=== PATIENT | male | born 1940 | race Caucasian/White ===

== ENCOUNTER → 2018-09-27 | Outpatient (CLI) | payer MEDICARE, OTHER ==
[~2018-09-27] MED LIST: COLACE100 MG; COMPLETE MULTI1 EAC3 PO; ECHINACEA 5001 EACH PO; FISH OIL 1,0001 EAC5 PO; GLUCOSAMINE-MS1 EAC3 PO; HYDROCODON-ACE1 EAC7; ODORLESS GARLI500 MG PO; VITAMIN E400 UNIT PO
--- NOTE | 2018-09-27 15:24 | 2DMMODE ---
[place] [address] 2 D/M-MODE ECHOCARDIOGRAM Name: CUBA LONG Room: [facility]#: [id number] Admission: 09/27/18 Attend Phys: Miguel A Vang, Discharge: Date of : 38 Date of Service: 09/27/18 1523 Report #: [id number] THIS REPORT FOR: //name// APPROVED REPORT Study performed: 09/27/2018 13:54:49 EXAM: Comprehensive 2D, Doppler, and color-flow Echocardiogram Patient Location: Out-Patient BSA: 1.98 HR: 102 bpm BP: 142/82 mmHg Other Information Study Quality: Good Indications Hypertension/HDD 2D Dimensions IVSd: 12.59 (7-11mm) LVOT Diam: 20.37 (18-24mm) LVDd: 42.18 mm PWd: 10.30 (7-11mm) Ascending Ao: 28.64 (22-36mm) LVDs: 22.33 (25-40mm) Aortic Root: 27.60 mm Volumes Left Atrial Volume (Systole) LA ESV Index: 16.10 mL/m2 Aortic Valve AoV Peak Aleksandar.: 0.95 m/s AO Peak Gr.: 3.59 mmHg LVOT Max P.20 mmHg AO Mean Gr.: 1.75 mmHg LVOT Mean P.91 mmHg LVOT Max V: 1.02 m/s AO V2 VTI: 13.63 cm LVOT Mean V: 0.63 m/s MARY JO (VTI): 3.51 cm2 LVOT V1 VTI: 14.66 cm Mitral Valve E/A Ratio: 0.53 MV Decel. Time: 192.69 ms MV E Max Aleksandar.: 0.42 m/s MV PHT: 55.88 ms MVA (PHT): 3.94 [place]2 [place] [address] 2 D/M-MODE ECHOCARDIOGRAM Name: CUBA LONG Room: [facility]#: [id number] Admission: 09/27/18 Attend Phys: Miguel A Vang, Discharge: Date of : 38 Date of Service: 09/27/18 1523 Report #: [id number] TDI E/Lateral E': 4.20 E/Medial E': 8.40 Medial E' Aleksandar.: 0.05 m/s Lateral E' Aleksandar.: 0.10 m/s Pulmonary Valve PV Peak Aleksandar.: 1.46 m/s PV Peak Gr.: 8.57 mmHg Tricuspid Valve RAP Estimate: 5.00 mmHg TR Peak Gr.: 26.18 mmHg RVSP: 31.18 mmHg PA Pressure: 31.18 mmHg Left Ventricle The left ventricle is normal size. There is normal LV segmental wall motion. There is normal left ventricular wall thickness. Left ventricular systolic function is normal. The left ventricular ejection fraction is within the normal range. LVEF is 60-65%. Grade I - abnormal relaxation pattern. Right Ventricle The right ventricle is normal size. The right ventricular systolic function is normal. Atria The left atrium size is normal. The right atrium size is normal. Aortic Valve Aortic valve is mildly calcified. No aortic regurgitation is present. There is no aortic valvular stenosis. Mitral Valve The mitral valve is normal in structure. Trace mitral regurgitation. No evidence of mitral valve stenosis. Tricuspid Valve The tricuspid valve is normal in structure. There is no tricuspid valve regurgitation noted. Pulmonic Valve The pulmonary valve is normal in structure. There is no pulmonic [place] [address] 2 D/M-MODE ECHOCARDIOGRAM Name: CUBA LONG Room: [facility]#: [id number] Admission: 09/27/18 Attend Phys: Miguel A Vang, Discharge: Date of : 38 Date of Service: 09/27/18 1523 Report #: [id number] The aortic root is normal in size. IVC is normal in size and collapses >50% with inspiration. Pericardium There is no pericardial effusion. <Conclusion> The left ventricle is normal size. There is normal left ventricular wall thickness. Left ventricular systolic function is normal. The left ventricular ejection fraction is within the normal range. LVEF is 60-65%. Grade I - abnormal relaxation pattern. The right ventricle is normal size. The left atrium size is normal. Aortic valve is mildly calcified. No aortic regurgitation is present. There is no aortic valvular stenosis. The mitral valve is normal in structure. The tricuspid valve is normal in structure. IVC is normal in size and collapses >50% with inspiration. There is no pericardial effusion. There is normal LV segmental wall motion. <ELECTRONICALLY SIGNED> By: Marco Perez MD, FACC 09/27/18 1523 1523 1523 Marco Perez MD, FACC /INF
== END ==
LOC: M.CRD 09:00
DX: I35.8 Other nonrheumatic aortic valve disorders (principal); I10 Essential (primary) hypertension

== ENCOUNTER 2018-11-18 18:50 | Emergency (ER) | payer MEDICARE, OTHER ==
[~2018-11-18] VITALS: Ht 170.2 cm; Wt 86.2 kg
[2018-11-18] MEDS ORDERED: PRILOSEC 20 MG20 MG PO ×2 (19:11→19:12)
[2018-11-18] MEDS ORDERED: TENORMIN25 MG PO (19:12)
[2018-11-18] MEDS ORDERED: NIFEDIPINE ER30 MG PO (19:12)
[2018-11-18 19:25] LABS: URINE BLOOD 3+ (Negative); URINE CLARITY CLEAR; URINE COLOR BROWN; URINE GLUCOSE-RANDOM NEGATIVE (Negative); URINE KETONES NEGATIVE (Negative); URINE PROTEIN 1+ (Negative); URINE SPECIFIC GRAVITY 1.015 (1.005-1.030)
[2018-11-18 19:27] LABS: ICTOTEST (BILI CONFIRMATORY) Negative (Negative); URINE BILIRUBIN 1+ (Negative); URINE LEUKOCYTES-REFLEX 3+ (Negative); URINE NITRITE-REFLEX POSITIVE (Negative)
[2018-11-18 19:35] LABS: BACTERIA-REFLEX 1-9 Few /HPF (None Seen); CASTS None Seen /LPF (None Seen); CRYSTALS None Seen /LPF (None Seen); SQUAMOUS NONE SEEN /LPF (0-3); URINE RBC >20 Many /HPF (0-2); URINE WBC-REFLEX 6-15 Few /HPF (0-5)
[2018-11-18 19:53] LABS: ABSOLUTE BASOPHILS 0.1 thou/uL (0.0-0.2); ABSOLUTE EOSINOPHILS 0.2 thou/uL (0.0-0.7); ABSOLUTE NEUTROPHILS 8.7 thou/uL (1.6-8.1); BASOPHILS 0.7 %; EOSINOPHILS 1.3 %; HEMATOCRIT 44.8 % (42.0-52.0); HEMOGLOBIN 15.1 gm/dL (14.0-18.0); LYMPHOCYTES 16.5 %; MCH 30.9 pg (26.0-34.0); MCHC 33.7 g/dL (28.0-37.0); MCV 91.8 fL (80.0-100.0); MPV 9.7 fl. (7.2-11.1); NUCLEATED RBCS 0 /100WBC; PLATELET COUNT* 155 thou/uL (150-400); POLYS 73.5 %; RBC 4.88 mil/uL (4.50-6.00); RDW-CV 14.1 % (10.5-14.5); WBC 11.9 thou/uL (4.0-11.0)
[2018-11-18 20:03] LABS: APTT 26.6 Seconds (25.0-31.3); PROTIME 10.7 Seconds (9.20-11.50)
[2018-11-18 20:06] LABS: ALBUMIN 3.9 g/dL (3.4-5.0); CALCIUM 8.9 mg/dL (8.5-10.1); TOTAL BILIRUBIN 0.5 mg/dL (<0.1-1.0); TOTAL PROTEIN 7.2 g/dL (6.4-8.2)
[2018-11-18] MEDS ORDERED: BACTRIM DS TAB1 EACH PO (21:42)
[2018-11-18 23:00] VITALS: BP 138/76
== END 2018-11-18 23:34 | disposition home or self-care (01) ==
LOC: M.ERS 18:50
PROVIDERS: Nurse Practitioner Family
DX: N39.0 Urinary tract infection, site not specified (principal)

== ENCOUNTER 2019-03-04 17:32 | Inpatient (IN) | payer MEDICARE, OTHER ==
[~2019-03-04] VITALS: Ht 170.2 cm; Wt 86.3 kg
[~2019-03-04 17:32] MED LIST changes: +BACTRIM DS TAB1 EACH PO; +NIFEDIPINE ER30 MG PO; +PRILOSEC 20 MG20 MG PO; +PRILOSEC OTC20 MG PO; +TENORMIN25 MG PO
[2019-03-04 17:43] VITALS: BP 146/77
[2019-03-04] MEDS ORDERED: ALLEGRA ALLERGY60 MG PO (17:59)
[2019-03-04] MEDS ORDERED: ONE-TABLET-DAI1 EAC1 PO (18:02)
[2019-03-04 18:08] LABS: URINE BILIRUBIN NEGATIVE (Negative); URINE BLOOD NEGATIVE (Negative); URINE CLARITY CLEAR; URINE COLOR YELLOW; URINE GLUCOSE-RANDOM NEGATIVE (Negative); URINE KETONES NEGATIVE (Negative); URINE LEUKOCYTES-REFLEX NEGATIVE (Negative); URINE NITRITE-REFLEX NEGATIVE (Negative); URINE PROTEIN NEGATIVE (Negative); URINE SPECIFIC GRAVITY <= 1.005 (1.005-1.030); URINE UROBILINOGEN 0.2 E.U./dl (0.2-1.0)
[2019-03-04 18:15] LABS: BE 4.2 mmol/L (-2 to +3); PCO2 45.4 mmHg (35.0-45.0); PO2 70.8 mmHg (75.0-100.0); pH 7.428 (7.340-7.450)
[2019-03-04 18:15] LABS: ABSOLUTE BASOPHILS 0.1 thou/uL (0.0-0.2); ABSOLUTE EOSINOPHILS 0.4 thou/uL (0.0-0.7); ABSOLUTE LYMPHOCYTES 3.1 thou/uL (0.8-5.3); ABSOLUTE MONOCYTES 1.1 thou/uL (0.0-1.2); ABSOLUTE NEUTROPHILS 4.2 thou/uL (1.6-8.1); BASOPHILS 0.9 %; EOSINOPHILS 4.1 %; HEMATOCRIT 45.5 % (42.0-52.0); HEMOGLOBIN 15.4 gm/dL (14.0-18.0); LYMPHOCYTES 35.1 %; MCH 31.2 pg (26.0-34.0); MCHC 33.8 g/dL (28.0-37.0); MCV 92.4 fL (80.0-100.0); MONOCYTES 12.2 %; MPV 10.1 fl. (7.2-11.1); NUCLEATED RBCS 0 /100WBC; PLATELET COUNT* 173 thou/uL (150-400); POLYS 47.7 %; RBC 4.92 mil/uL (4.50-6.00); RDW-CV 14.2 % (10.5-14.5); WBC 8.9 thou/uL (4.0-11.0)
[2019-03-04 18:27] LABS: ANION GAP 7 mmol/L (7-16); BUN 19 mg/dL (7-18); CALCIUM 9.2 mg/dL (8.5-10.1); CHLORIDE 102 mmol/L (98-107); CO2 30 mmol/L (21-32); GLUCOSE 130 mg/dL (70-99); SODIUM 139 mmol/L (136-145)
[2019-03-04 18:37] LABS: ALBUMIN 3.9 g/dL (3.4-5.0); ALKALINE PHOSPHATASE 72 U/L (46-116); MAGNESIUM 2.2 mg/dL (1.8-2.4); NT-PRO BRAIN NAT PEPTIDE 78 pg/mL (<300); SGOT 18 U/L (15-37); SGPT 37 U/L (30-65); TOTAL BILIRUBIN 0.4 mg/dL (<0.1-1.0); TOTAL PROTEIN 7.7 g/dL (6.4-8.2); TROPONIN-I LEVEL <0.06 ng/mL (<0.06)
[2019-03-04 18:59] LABS: PROTIME 10.2 Seconds (9.20-11.50)
[2019-03-04 20:25] VITALS: BP 136/86
[2019-03-04 21:22] VITALS: BP 140/77
[2019-03-05 04:19] VITALS: BP 119/70
--- NOTE | 2019-03-05 06:31 | NUR ---
PATIENT ARRIVED ON FLOOR FROM ER ABOUT 2129. PATIENT ADMISSION HISTORY AND ASSESSMENT WAS COMPLETED CHARTED. PATIENT IS ON OXYGEN AT 2L PER NASAL CANNULA. IS AT THE BEDSIDE. WILL CONTINUE TO MONITOR.
--- NOTE | 2019-03-05 10:26 | NUR ---
INITAL ASSESSMENT COMPLETED CHARTED. VSS. TRACING SR ON MONITOR AT START OF SHOFT, HAS BEEN CHANGED TO M/S STATUS. PT DENIES PAIN, SOA, N/V/D. PT DENIES ANY FURTHER NEEDS AT THIS TIME. HOURLY ROUNDING IN PLACE FOR PT SAFETY. CLWR
--- NOTE | 2019-03-05 11:33 | EKG ---
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1940 Requested By: Karol Tracy Order Number: [id number] MD: Miguel A Vang Measurements Intervals [place] Rate: 76 P: -8 IN: 177 QRS: -41 QRSD: 112 T: 28 QT: 393 QTc: 442 Interpretive Statements Incomplete analysis due to missing data in precordial lead(s) Sinus rhythm Borderline IVCD with LAD Missing lead(s): V1 Compared to ECG 11/14/2011 18:56:02 Sinus tachycardia no longer present Ventricular premature complex(es) no longer present ST (T wave) deviation no longer present Possible ischemia no longer present Electronically Signed On 03-05-2019 11:33:15 CDT by Miguel A Vang [email or web address] <ELECTRONICALLY SIGNED> By: Miguel A Vang MD, [facility] 03/05/19 1133 1746 1746 Miguel A Vang MD, [facility] /EPI
[2019-03-05 12:19] VITALS: BP 107/77
[2019-03-05 16:02] VITALS: BP 113/65
[2019-03-05 20:00] VITALS: BP 128/73
[2019-03-06] VITALS: BP 119/70
[2019-03-06 04:39] LABS: HEMATOCRIT 43.1 % (42.0-52.0); HEMOGLOBIN 14.2 gm/dL (14.0-18.0); MCH 30.7 pg (26.0-34.0); MCHC 32.9 g/dL (28.0-37.0); MCV 93.3 fL (80.0-100.0); MPV 10.3 fl. (7.2-11.1); RBC 4.62 mil/uL (4.50-6.00); RDW-CV 14.3 % (10.5-14.5); WBC 18.1 thou/uL (4.0-11.0)
[2019-03-06 04:48] LABS: CALCIUM 8.9 mg/dL (8.5-10.1); CREATININE 1.2 mg/dL (0.6-1.3); MAGNESIUM 2.2 mg/dL (1.8-2.4); POTASSIUM 4.1 mmol/L (3.5-5.1)
--- NOTE | 2019-03-06 06:30 | NUR ---
PT RESTED THROUGH NIGHT WITHOUT INCIDENT. MED/SURG STATUS. ASKED ABOUT PT'S ATENOLOL NOT BEING RESTARTED, NOTIFIED HER PT'S BP IS DOING GREAT AND ADDITIONAL MEDICATION NOT NEEDED LAST NIGHT. ENCOURAGED TO DISCUSS WITH DR IN AM.
[2019-03-06 07:00] VITALS: BP 104/71
--- NOTE | 2019-03-06 07:59 | NUR ---
INITAL ASSESSMENT COMPLETED CHARTED. VSS. PT DENIES PAIN. PT CONTINUES ON 1.5LPM VIA NC. PT IS M/S STATUS. PT SYDNEE ANY FURTHER NEEDS. HOURLY ROUNDING IN PLACE FOR PT SAFETY. AT BEDSIDE. CLWR.
[2019-03-06] MEDS ORDERED: PREDNISONE 20 M20 MG PO (08:28)
[2019-03-06] MEDS ORDERED: VENTOLIN HFA 1818 GM INH (08:28)
[2019-03-06] MEDS ORDERED: MUCUS ER1200 MG PO (08:28)
[2019-03-06] MEDS ORDERED: LEVAQUIN 750 M750 MG PO (08:28)
[2019-03-06] MEDS ORDERED: ACIDOPHILUS1 EAC4 PO (08:28)
[2019-03-06 09:57] VITALS: BP 103/51
== END 2019-03-06 11:38 | disposition home or self-care (01) | DRG 189 ==
LOC: M.ERS 17:32 → M.TBA-ER 20:46 → M.2W 21:44
PROVIDERS: Internal Medicine; Personal Emergency Response Attendant; ADMIT Internal Medicine
DX: J96.01 Acute respiratory failure with hypoxia (principal); J20.8 Acute bronchitis due to other specified organisms; I10 Essential (primary) hypertension; K21.9 Gastro-esophageal reflux disease without esophagitis; Z90.79 Acquired absence of other genital organ(s); Z79.899 Other long term (current) drug therapy

== ENCOUNTER 2019-03-13 18:50 | Inpatient (IN) | payer MEDICARE, OTHER ==
[~2019-03-13] VITALS: Ht 170.2 cm; Wt 88.3 kg
[~2019-03-13 18:50] MED LIST changes: +ACIDOPHILUS1 EAC4 PO; +ALLEGRA ALLERGY60 MG PO; +LEVAQUIN 750 M750 MG PO; +MUCUS ER1200 MG PO; +ONE-TABLET-DAI1 EAC1 PO; +PREDNISONE 20 M20 MG PO; +VENTOLIN HFA 1818 GM INH
[2019-03-13 18:53] VITALS: BP 144/80
[2019-03-13 19:39] LABS: ABSOLUTE BASOPHILS 0.1 thou/uL (0.0-0.2); ABSOLUTE EOSINOPHILS 0.3 thou/uL (0.0-0.7); ABSOLUTE LYMPHOCYTES 2.6 thou/uL (0.8-5.3); ABSOLUTE MONOCYTES 0.8 thou/uL (0.0-1.2); ABSOLUTE NEUTROPHILS 5.2 thou/uL (1.6-8.1); BASOPHILS 0.8 %; EOSINOPHILS 2.8 %; HEMATOCRIT 44.3 % (42.0-52.0); HEMOGLOBIN 14.9 gm/dL (14.0-18.0); LYMPHOCYTES 28.9 %; MCH 31.7 pg (26.0-34.0); MCHC 33.6 g/dL (28.0-37.0); MCV 94.4 fL (80.0-100.0); MONOCYTES 8.8 %; MPV 9.7 fl. (7.2-11.1); NUCLEATED RBCS 0 /100WBC; PLATELET COUNT* 174 thou/uL (150-400); POLYS 58.7 %; RBC 4.69 mil/uL (4.50-6.00); RDW-CV 14.4 % (10.5-14.5); WBC 8.9 thou/uL (4.0-11.0)
[2019-03-13 19:41] LABS: BE 1.8 mmol/L (-2 to +3); PCO2 46.3 mmHg (35.0-45.0); PO2 62.3 mmHg (75.0-100.0)
--- NOTE | 2019-03-13 19:41 | NUR ---
PATIENTS ASKING IF PATIENT NEEDED OXYGEN AT HOME BECAUSE HIS OXYGEN SATURATION HERE HAS BEEN LOW WHILE HERE WITHOUT OXYGEN.DR ROBERSON NOTIFIED OF THIS QUESTION BY PATIENTS .
[2019-03-13 19:53] LABS: PROTIME 10.6 Seconds (9.20-11.50)
[2019-03-13 20:05] LABS: ANION GAP 7 mmol/L (7-16); BUN 20 mg/dL (7-18); CHLORIDE 103 mmol/L (98-107); CO2 29 mmol/L (21-32); CREATININE 1.1 mg/dL (0.6-1.3); GLUCOSE 154 mg/dL (70-99); SODIUM 139 mmol/L (136-145)
[2019-03-13 20:07] LABS: ALBUMIN 3.5 g/dL (3.4-5.0); ALKALINE PHOSPHATASE 59 U/L (46-116); LIPASE 229 U/L (73-393); NT-PRO BRAIN NAT PEPTIDE 55 pg/mL (<300); SGOT 21 U/L (15-37); SGPT 45 U/L (30-65); TOTAL BILIRUBIN 0.4 mg/dL (<0.1-1.0); TOTAL PROTEIN 6.8 g/dL (6.4-8.2); TROPONIN-I LEVEL <0.06 ng/mL (<0.06)
[2019-03-13 22:42] VITALS: BP 110/66
[2019-03-13 22:50] VITALS: BP 141/83
[2019-03-14 04:00] VITALS: BP 135/78
--- NOTE | 2019-03-14 07:51 | NUR ---
PATIENT PROGRESSING TOWARDS GOALS SINCE ADMISSION: PATIENT STATES HE FEELS THOUGH HE BREATHING IS MUCH IMPROVED. PATIENT O2 SATS >92% ON 2L O2 NC. PATIENT AND UPSET AND FEELS LIKE HE WAS DISCHARGED TOO SOON LAST TIME. REDUCATED PATIENT ON MEDICARE RIGHTS AND HIS RIGHT TO APPEAL DISCHARGE IF THEY FEEL THOUGH IT'S TOO SOON. CALL LIGHT WITHIN REACH
[2019-03-14 08:00] VITALS: BP 125/72
[2019-03-14 12:09] VITALS: BP 144/71
--- NOTE | 2019-03-14 12:35 | NUR ---
ASSUMED PT CARE REPORT RECEIVED FROM NURSE. 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 ON 2 L NC. O2 SATURATION IS 98%. PT AMBULATES IN HALLWAY WITH NURSE ASSISTANCE AND OXYGEN ATTACHED. PT O2 SATURATION REMAINS ABOVE 90% DURING AMBULATION. PT HEART RATE INCREASED UP TO 120 BEATS PER MINUTE. PT HOME MED RESTARTED. 500 CC BOLUS OF LR GIVEN ORDERED. PT HAS GOOD APPETITE. CURRENTLY SITTING IN CHAIR AT BEDSIDE. CTA ORDERED AND TO BE PERFORMED AT 1300. TROP NEG. SEPSIS NEG. WILL CONTINUE TO MONITOR
--- NOTE | 2019-03-14 15:30 | NUR ---
I SPOKE TO THE PATIENT HE HAS NEVER WORN A BIPAP OR CPAP AT HOME OR THE HOSPITAL.
--- NOTE | 2019-03-14 15:53 | NUR ---
Pt is A&O. Resides at home with . [place] JOLLA. Independent and active. No DME. No hx of HH or SNF. Goal is home at dc, unsure if he will need anything at dc. Per , they are still waiting on a diagnosis. CM following.
[2019-03-14 16:11] VITALS: BP 111/68
--- NOTE | 2019-03-14 17:09 | EKG ---
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 03/14/19 6193 190 01 Jersey Daniels MD, [facility] /EPI
[2019-03-14 19:55] VITALS: BP 132/68
[2019-03-15] VITALS: BP 123/72
[2019-03-15 03:58] VITALS: BP 127/68
--- NOTE | 2019-03-15 05:16 | NUR ---
PATIENT PROGRESSING TOWARDS GOALS: O2 SATURATION MAINTAINED >92% ON 2L O2 NC. PATIENT REFUSED TO WEAR BIPAP OVERNIGHT DESPITE EDUCATION GIVEN. PATIENT AND STATE HE IS "TOO CLAUSTROPHOBIC" TO WEAR THE MASK. PATIENT ABLE TO AMBULATE IN HALLWAYS THIS MORNING WITH NO COMPLICATIONS. CALL LIGHT WITHIN REACH.
[2019-03-15 05:19] LABS: ABSOLUTE LYMPHOCYTES 3.6 thou/uL (0.8-5.3); ABSOLUTE NEUTROPHILS 13.2 thou/uL (1.6-8.1); BASOPHILS 0.2 %; EOSINOPHILS 0.3 %; HEMATOCRIT 42.1 % (42.0-52.0); HEMOGLOBIN 13.9 gm/dL (14.0-18.0); LYMPHOCYTES 20.1 %; MCH 31.2 pg (26.0-34.0); MCHC 33.1 g/dL (28.0-37.0); MCV 94.2 fL (80.0-100.0); MONOCYTES 5.8 %; MPV 9.3 fl. (7.2-11.1); NUCLEATED RBCS 0 /100WBC; PLATELET COUNT* 162 thou/uL (150-400); POLYS 73.6 %; RBC 4.47 mil/uL (4.50-6.00); RDW-CV 14.5 % (10.5-14.5); WBC 17.8 thou/uL (4.0-11.0)
[2019-03-15 05:51] LABS: CALCIUM 8.1 mg/dL (8.5-10.1); CREATININE 0.9 mg/dL (0.6-1.3); POTASSIUM 3.6 mmol/L (3.5-5.1)
[2019-03-15 07:51] VITALS: BP 119/78
[2019-03-15 11:43] VITALS: BP 122/63
[2019-03-15 15:48] VITALS: BP 106/52
--- NOTE | 2019-03-15 16:11 | NUR ---
ASSUMED CARE OF PT AROUND 0730 THIS AM. REFER TO ASSESSMENT.FAMILY UPSET THIS EVENING D/T ANXIOUS ABOUT DISCUSSING PLAN OF CARE WITH PULMONOLOGISTS TODAY BUT PULMONARY PHYSICIAN DID NOT ROUND ON PATIENT. OFFICE CONTACTED TO [facility]IAN AROUND 1400 TODAY WITH NO RETURN CALL AT THIS TIME. VSS. TELE SR. PT REMAINS ON 2L OXYGEN/NC. UNABLE TO TITRATE TODAY. NO OTHER CONCERNS AT THIS TIME. CLWR. WCTM.
[2019-03-15 19:40] VITALS: BP 128/73
[2019-03-16] VITALS: BP 143/73
[2019-03-16 04:00] VITALS: BP 142/82
[2019-03-16 05:21] LABS: ABSOLUTE EOSINOPHILS 0.1 thou/uL (0.0-0.7); ABSOLUTE LYMPHOCYTES 2.9 thou/uL (0.8-5.3); ABSOLUTE MONOCYTES 0.9 thou/uL (0.0-1.2); ABSOLUTE NEUTROPHILS 8.8 thou/uL (1.6-8.1); BASOPHILS 0.3 %; HEMATOCRIT 40.9 % (42.0-52.0); HEMOGLOBIN 13.3 gm/dL (14.0-18.0); LYMPHOCYTES 22.6 %; MCH 30.8 pg (26.0-34.0); MCHC 32.5 g/dL (28.0-37.0); MCV 94.8 fL (80.0-100.0); MONOCYTES 7.1 %; MPV 9.5 fl. (7.2-11.1); NUCLEATED RBCS 0 /100WBC; PLATELET COUNT* 146 thou/uL (150-400); RBC 4.32 mil/uL (4.50-6.00); WBC 12.8 thou/uL (4.0-11.0)
[2019-03-16 05:35] LABS: CREATININE 0.8 mg/dL (0.6-1.3); POTASSIUM 3.7 mmol/L (3.5-5.1)
--- NOTE | 2019-03-16 07:45 | NUR ---
PT CARE ASSUMED AT 1930. SAT MAINTAINED IN O2. ALERT AND ORIENTED X4. DENIES PAIN AND SOB. HOURLY ROUNDING DONE FOR PT SAFETY.
[2019-03-16 12:26] VITALS: BP 124/67
--- NOTE | 2019-03-16 14:08 | 2DMMODE ---
[place] [address] 2 D/M-MODE ECHOCARDIOGRAM Name: CUBA LONG Room: [address] IN [facility]#: [id number] Admission: 03/13/19 Attend Phys: Renato Jorgensen Discharge: Date of : 38 Date of Service: 03/16/19 1408 Report #: [id number] THIS REPORT FOR: //name// APPROVED REPORT Study performed: 03/16/2019 10:51:52 EXAM: Comprehensive 2D, Doppler, and color-flow Echocardiogram Patient Location: In-Patient Room #: [facility] Status: routine BSA: 1.99 HR: 79 bpm BP: 142/82 mmHg Rhythm: NSR Other Information Study Quality: Good Indications COPD Dyspnea 2D Dimensions IVSd: 9.63 (7-11mm) LVOT Diam: 23.47 (18-24mm) LVDd: 43.18 mm PWd: 10.09 (7-11mm) Ascending Ao: 34.10 (22-36mm) LVDs: 30.34 (25-40mm) Aortic Root: 37.75 mm Volumes Left Atrial Volume (Systole) LA ESV Index: 23.90 mL/m2 Aortic Valve AoV Peak Aleksandar.: 1.16 m/s AO Peak Gr.: 5.41 mmHg LVOT Max P.46 mmHg AO Mean Gr.: 2.89 mmHg LVOT Mean P.96 mmHg LVOT Max V: 1.06 m/s AO V2 VTI: 20.81 cm LVOT Mean V: 0.63 m/s MARY JO (VTI): 4.23 cm2 LVOT V1 VTI: 20.36 cm Mitral Valve E/A Ratio: 0.83 MV Decel. Time: 298.36 [place] [address] 2 D/M-MODE ECHOCARDIOGRAM Name: CUBA LONG Room: [address] IN .#: [id number] Admission: 03/13/19 Attend Phys: Renato Jorgensen Discharge: Date of : 38 Date of Service: 03/16/19 1408 Report #: [id number] MV E Max Aleksandar.: 0.58 m/s MV PHT: 86.52 ms MVA (PHT): 2.54 cm2 TDI E/Lateral E': 4.83 E/Medial E': 7.25 Medial E' Aleksandar.: 0.08 m/s Lateral E' Aleksandar.: 0.12 m/s Pulmonary Valve PV Peak Aleksandar.: 1.30 m/s PV Peak Gr.: 6.76 mmHg Tricuspid Valve RAP Estimate: 5.00 mmHg TR Peak Gr.: 26.55 mmHg RVSP: 31.00 mmHg PA Pressure: 31.00 mmHg Left Ventricle The left ventricle is normal size. There is normal LV segmental wall motion. There is normal left ventricular wall thickness. Left ventricular systolic function is normal. The left ventricular ejection fraction is within the normal range. LVEF is 60-65%. Grade I - abnormal relaxation pattern. Right Ventricle The right ventricle is normal size. The right ventricular systolic function is normal. Atria The left atrium size is normal. The right atrium size is normal. Aortic Valve Mild aortic valve sclerosis. No aortic regurgitation is present. There is no aortic valvular stenosis. Mitral Valve The mitral valve is normal in structure. Trace mitral regurgitation. No evidence of mitral valve stenosis. Tricuspid Valve The tricuspid valve is normal in structure. Mild tricuspid regurgitation. estimated pa pressure 35 mm Hg Pulmonic Valve The pulmonary valve is normal in structure. [place] [address] 2 D/M-MODE ECHOCARDIOGRAM Name: CUBA LONG Room: [address]#: [id number] Admission: 03/13/19 Attend Phys: Renato Jorgensen Discharge: Date of : 38 Date of Service: 03/16/19 1408 Report #: [id number] regurgitation. Great Vessels The aortic root is normal in size. IVC is normal in size and collapses >50% with inspiration. Pericardium There is no pericardial effusion. <Conclusion> LVEF is 60-65%. Mild aortic valve sclerosis. <ELECTRONICALLY SIGNED> By: Jersey Daniels MD, [facility] 03/16/19 1408 1408 1408 Jersey Daniels MD, FAC /INF
--- NOTE | 2019-03-16 14:44 | NUR ---
Per , anticipate that Pt will be ready to dc to home tomorrow. Following.
[2019-03-16 15:48] VITALS: BP 110/83
[2019-03-16 19:40] VITALS: BP 117/67
[2019-03-17] VITALS: BP 140/78
[2019-03-17 04:00] VITALS: BP 128/80
--- NOTE | 2019-03-17 05:13 | NUR ---
PT CARE ASSUMED AT 1930. SAT MAINTAINED IN RA. ALERT AND ORIENTED X4. CALL LIGHT WITHIN REACH AND BED IN LOW POSITION. SPOUSE PRESENT AT BEDSIDE. DENIES PAIN AND SOB. HOURLY ROUDING DONE FOR PT SAFETY.
[2019-03-17 07:17] VITALS: BP 121/79
--- NOTE | 2019-03-17 07:32 | NUR ---
INITIAL ASSESSMENT COMPLETED CHARTED. VSS. TRACING SR WITH PVC'S ON THE MONITOR. PT DENIES SOA, N/V/D, PAIN. HOURLY ROUNDING FOR PT SAFETY. CLWR.
[2019-03-17] MEDS ORDERED: AZITHROMYCIN 2250 MG PO (09:55)
[2019-03-17] MEDS ORDERED: SINGULAIR 10 MG10 M1 PO (09:55)
[2019-03-17] MEDS ORDERED: PEPCID20 MG PO (09:55)
[2019-03-17] MEDS ORDERED: PREDNISONE 10 M10 M1 PO (09:55)
--- NOTE | 2019-03-17 09:57 | CON ---
[address] [address] CONSULTATION Name: CUBA LONG Room: [address] IN .R.#: [id number] Admission: 03/13/19 Attend Phys: Renato Wolf, Discharge: Date of : 38 Report #: [id number] THIS REPORT FOR: //name// CC: Johnnie Benton DO FAM physician/PCP Renato Wolf DATE OF SERVICE: 03/16/2019 PULMONARY CONSULTATION ATTENDING PHYSICIAN: Johnnie Benton DO. LOCATION: Room [facility]. INDICATION FOR CONSULTATION: Bronchitis, wheeze, bronchospasm, hypoxemia. CLINICAL SUMMARY: The patient is a 78-year-old male, lifelong nonsmoker, who was admitted through the Emergency Room with shortness of breath going on 4 days prior to admission on 03/13/2019. The patient had cough, wheezing, some clear phlegm. He felt uncomfortable. He was hospitalized here at [facility] from 03/04 and was discharged home on 03/06, he had 3-5 days of antibiotics and then a prednisone taper as soon as he ran out of the prednisone taper burst, which was a day or 2 prior to his being seen in the Emergency Room. He had cough, wheezing and shortness of breath. He states he has some esophageal reflux. He states he is not active at this time. He is taking some Prilosec for it. Have not taken p.r.n. Tums or antacids. He does not have any sinus drainage or allergies. Denies any aspiration or choking when he eats. He is a nonsmoker. 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 He is more short of breath. He can occasionally get up a flight of stairs, but he has been more short of breath this month. Previously, he has not had problems with lung problems. He was not on any inhalers or puffers at home. He did not take his inhaler very well at home and he admits that his technique was poor. We worked with him on technique and he has a chamber also with him. PAST MEDICAL HISTORY: He has a history of some mild left ventricular hypertrophy. No definite heart failure or fluid and he has also had some esophageal reflux for which he has been on some omeprazole. He has also had urinary tract infections in the past. Again, just recently had bronchitis. ALLERGIES: He has no known medical allergies. PAST SURGICAL HISTORY: Includes a prostatectomy for localized prostate cancer in 2004, hypertension. He has had some spinal stenosis with one surgery. He has had a carpal tunnel surgery, cataract [place] [address] CONSULTATION Name: CUBA LONG Room: [address] IN [facility]#: [id number] Admission: 03/13/19 Attend Phys: Renato Wolf, Discharge: Date of : 38 Report #: [id number] OUTPATIENT MEDICATIONS: Included a round of Levaquin for 4 tablets and then prednisone was just 2 tablets and it was actually just for 3 days on 40 mg and stopped. He had a Ventolin inhaler. He is on DuoNeb treatments at this time and prednisone 40 mg a day and then also azithromycin 250 mg daily. He was on oxygen at 2 liters. He is now down to room air. FAMILY HISTORY: Negative for premature cardiopulmonary disease. SOCIAL HISTORY: He is a lifelong nonsmoker, nondrinker. 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 Denies any alcohol use or illicit drug use. REVIEW OF SYSTEMS: Fourteen review of systems reviewed negative. GENERAL: Negative fever, chills, or sweats. EYES: No blurry vision. HEENT: Denies any sinus drainage or allergies. NECK: Supple without nodes. CARDIOVASCULAR: No chest pain or palpitations. RESPIRATORY: He has cough, wheezing and clear sputum. GASTROINTESTINAL: Some mild esophageal reflux. No nausea, vomiting or diarrhea. No bloody stools. GENITOURINARY: He has had no urgency or frequency. MUSCULOSKELETAL: Denies any joint pain. ENDOCRINE: Denies diabetes or thyroid problems. HEMATOLOGIC: No bruising or bleeding. SKIN: No rashes or lesions. NEUROLOGIC: No numbness, tingling, or headaches. PHYSICAL EXAMINATION: GENERAL: This is a pleasant 78-year-old male who is accompanied by his . He does most of the talking for him. He is little bit hard of hearing, does not have his hearing aid in at this time. VITAL SIGNS: Blood pressure is 142/82, his heart rate is 72 and regular, respirations are 16, and his temperature is 36.7, 37.3 was the highest temperature I have seen. He is 5 feet 9 inches tall, weight is 88 kilograms or 189 pounds, BMI is 30. HEENT: Unremarkable. Pharynx is clear. Mallampati score 1-2. Sinuses nontender. NECK: Supple, without masses or adenopathy. CHEST: Shows diminished breath sounds. He has prolonged expiratory phase on quiet respiration. No wheezing on forced expiratory maneuver. He has bilateral expiratory wheeze in both lower lobes and somewhat less involved in the upper lobes. He does have some dry cough at end expiration. CARDIOVASCULAR: Regular rate and rhythm without murmur, gallop or rub. Heart rate is 72. [address] [place] [address] CONSULTATION Name: CUBA LONG Room: [address] IN [facility]#: [id number] Admission: 03/13/19 Attend Phys: Renato Wolf, Discharge: Date of : 38 Report #: [id number] ABDOMEN: Soft, without masses or megaly. EXTREMITIES: Without calf tenderness. No cyanosis, clubbing or edema. NEUROLOGIC: Grossly intact. He is nonfocal and moves all fours to commands. SKIN: Dry and intact. LABORATORY DATA: From 03/16/2019; hemoglobin is 13, white count is 13,000, normal differential. No increase in eosinophilia. Hematocrit is 41, platelets are 146,000. Again, normal differential. Sodium is 140, potassium is 3.7, chloride is 104, BUN is 17 with a creatinine of 0.8 and glucose of 96. Calcium is 8.0, albumin is 3.5, lipase is normal at 229. NT-proBNP is normal at 55. Chest x-ray and CT of the chest on 03/14/2019, I reviewed them both and both are within normal limits. He has not had any PFTs. He did have a blood gas upon admit on 03/13/2019 at 7:16 in the evening and on room air, his pO2 was 63, pH 7.39, pCO2 mildly elevated at 46, bicarbonate 27, sats 91%. Carboxyhemoglobin was only 0.3. Again, no PFTs on this patient. Prior EKGs have been unremarkable. Last echocardiogram was 10/2018. At that time, he had an EF of 60-65% with mild left ventricular hypertrophy. No pulmonary artery hypertension. No valvular disease. He was on antihypertensive meds at that time per Dr. Vang. IMPRESSION: 1. Dyspnea and cough. Most likely has bronchitis and bronchospasm. He failed outpatient therapy on a short course of prednisone and antibiotics. Had recurrence of his symptoms. 2. Hypertension. 3. Left ventricular hypertrophy, probably with grade 1 diastolic dysfunction. 4. Hard of hearing. 5. Remote history of prostate cancer in 2004. No evidence of recurrence. PLAN: He has somewhat poor technique with his inhaler. I went over his inhaler technique with him and his . Also, they have a chamber at the bedside, so he is using that. Respiratory therapy will work with him for the next day or two, see if we can get his inhaler technique better, so can use it at home. I am also going to add some oral meds in the form montelukast 10 mg daily to see if that helps his cough with wheezing. He has borderline hypoxic, room air sats 92-94%. He desaturates down to 90-91% when he ambulates 140 feet, but then quickly puffs back up to 93-94. I do not think he will require supplemental oxygen at home at least at this time. He may be a candidate for nebulizers at home. We will see how he does over the next day or two. I would suggest a 2-week longer prednisone taper 40 mg a day for 4 days, 30 mg, 20 mg, 10 mg a day for 4 days and then oral antibiotic of azithromycin or Rocephin would be fine for the next 7 days along with montelukast see if we can keep his bronchitis and bronchospasm under control. 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 I reassured the and the patient, I do not think he has severe COPD at least on his physical exam or on [address] [place] [address] CONSULTATION Name: CUBA LONG Room: [address] IN [facility]#: [id number] Admission: 03/13/19 Attend Phys: Renato Wolf, Discharge: Date of : 38 Report #: [id number] his CAT scans. If we need to do full PFTs in the future in 4-6 weeks if needed, we will be happy to follow up with him. Although, he does his primary care physician down in [place]. Hopefully, home within the next 24-48 hours from pulmonary view. Thanks again for allowing us to participate in this nice man's care. <ELECTRONICALLY SIGNED> By: Ashutosh Zeng MD 03/17/19 0957 1208 [id number] Zneg MD /nt
[2019-03-17 10:30] VITALS: BP 121/79
== END 2019-03-17 11:18 | disposition home or self-care (01) | DRG 189 ==
LOC: M.ERS 18:50 → M.TBA-ER 21:02 → M.2W 21:53 → M.TBA-ER 21:53 → M.2W 22:45
PROVIDERS: Family Medicine; ADMIT Family Medicine
DX: J96.01 Acute respiratory failure with hypoxia (principal); J44.1 Chronic obstructive pulmonary disease with (acute) exacerbation; N17.9 Acute kidney failure, unspecified; N18.2 Chronic kidney disease, stage 2 (mild); I12.9 Hypertensive chronic kidney disease with stage 1 through stage 4 chronic kidney disease, or unspecified chronic kidney disease; G47.33 Obstructive sleep apnea (adult) (pediatric); I51.7 Cardiomegaly; K21.9 Gastro-esophageal reflux disease without esophagitis; R05 Cough; Z98.49 Cataract extraction status, unspecified eye; Z85.46 Personal history of malignant neoplasm of prostate; Z79.899 Other long term (current) drug therapy

== ENCOUNTER 2019-04-24 16:39 | Emergency (ER) | payer MEDICARE, OTHER ==
[~2019-04-24] VITALS: Ht 170.2 cm; Wt 84.8 kg
[~2019-04-24 16:39] MED LIST changes: +ALLEGRA ALLERG180 MG PO; -ALLEGRA ALLERGY60 MG PO; +AZITHROMYCIN 2250 MG PO; +OMEPRAZOLE40 MG PO; +PEPCID20 MG PO; +PREDNISONE 10 M10 M1 PO; -PRILOSEC OTC20 MG PO; +SINGULAIR 10 MG10 M1 PO
[2019-04-24 17:13] LABS: ABSOLUTE BASOPHILS 0.1 thou/uL (0.0-0.2); ABSOLUTE EOSINOPHILS 0.3 thou/uL (0.0-0.7); ABSOLUTE LYMPHOCYTES 2.8 thou/uL (0.8-5.3); ABSOLUTE MONOCYTES 0.9 thou/uL (0.0-1.2); BASOPHILS 1.1 %; HEMATOCRIT 45.9 % (42.0-52.0); HEMOGLOBIN 15.5 gm/dL (14.0-18.0); MCH 31.1 pg (26.0-34.0); MCHC 33.7 g/dL (28.0-37.0); MCV 92.3 fL (80.0-100.0); MONOCYTES 11.2 %; MPV 10.1 fl. (7.2-11.1); NUCLEATED RBCS 0 /100WBC; PLATELET COUNT* 174 thou/uL (150-400); POLYS 48.7 %; RBC 4.97 mil/uL (4.50-6.00); RDW-CV 14.4 % (10.5-14.5); WBC 8.1 thou/uL (4.0-11.0)
[2019-04-24 17:24] LABS: APTT 25.7 Seconds (25.0-31.3); PROTIME 10.5 Seconds (9.20-11.50)
[2019-04-24 17:31] LABS: ANION GAP 8 mmol/L (7-16); BUN 13 mg/dL (7-18); CHLORIDE 102 mmol/L (98-107); CO2 30 mmol/L (21-32); CREATININE 1.1 mg/dL (0.6-1.3); GLUCOSE 143 mg/dL (70-99); POTASSIUM 3.9 mmol/L (3.5-5.1); SODIUM 140 mmol/L (136-145)
[2019-04-24 17:36] LABS: ALBUMIN 4.1 g/dL (3.4-5.0); ALKALINE PHOSPHATASE 67 U/L (46-116); NT-PRO BRAIN NAT PEPTIDE 53 pg/mL (<300); SGOT 24 U/L (15-37); SGPT 52 U/L (30-65); TOTAL BILIRUBIN 0.5 mg/dL (<0.1-1.0); TOTAL PROTEIN 7.6 g/dL (6.4-8.2); TROPONIN-I LEVEL <0.06 ng/mL (<0.06)
[2019-04-24 17:39] LABS: INFLUENZA A ANTIGEN Negative (Negative); INFLUENZA B ANTIGEN Negative (Negative)
[2019-04-24] MEDS ORDERED: PREDNISONE 10 M10 MG PO (19:02)
[2019-04-24] MEDS ORDERED: DOXYCYCLINE 10100 MG PO (19:02)
[2019-04-24] MEDS ORDERED: BREO ELLIPTA 11 EACH INH (19:02)
[2019-04-24] MEDS ORDERED: NEBULIZER MISCELL (19:03)
[2019-04-24] MEDS ORDERED: IPRAT-ALBUT 0.5-3 ML INH (19:03)
[2019-04-24 19:18] VITALS: BP 128/73
--- NOTE | 2019-04-25 11:19 | EKG ---
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1940 Requested By: Alexa Mooney Order Number: [id number] MD: Jersey Daniels Measurements Intervals [place] Rate: 88 P: 22 TX: 181 QRS: 30 QRSD: 113 T: 0 QT: 376 QTc: 455 Interpretive Statements Sinus rhythm Borderline intraventricular conduction delay Borderline repolarization abnormality Compared to ECG 03/13/2019 19:02:23 no change Electronically Signed On 04-25-2019 11:19:24 CDT by Jersey Daniels [email or web address] <ELECTRONICALLY SIGNED> By: Jersey Daniels MD, [facility] 04/25/19 1119 D: 09/1655 55 Jersey Daniels MD, FACC /EPI
== END 2019-04-24 19:26 | disposition home or self-care (01) ==
LOC: M.ERS 16:39
PROVIDERS: Nurse Practitioner Family
DX: J20.9 Acute bronchitis, unspecified (principal); J44.0 Chronic obstructive pulmonary disease with (acute) lower respiratory infection; I10 Essential (primary) hypertension; M48.00 Spinal stenosis, site unspecified; Z85.46 Personal history of malignant neoplasm of prostate; Z90.89 Acquired absence of other organs

== ENCOUNTER 2019-12-24 17:10 | Emergency (ER) | payer MEDICARE, OTHER ==
[~2019-12-24] VITALS: Ht 172.7 cm; Wt 79.4 kg
[~2019-12-24 17:10] MED LIST changes: +BREO ELLIPTA 11 EACH INH; +DOXYCYCLINE 10100 MG PO; +IPRAT-ALBUT 0.5-3 ML INH; +NEBULIZER MISCELL; +PREDNISONE 10 M10 MG PO
[2019-12-24] MEDS ORDERED: FISH OIL 1,001000 M3 PO (17:27)
[2019-12-24] MEDS ORDERED: ASA81BEC PO (17:27)
[2019-12-24] MEDS ORDERED: FUROSEMIDE 20 M20 MG PO (17:27)
[2019-12-24] MEDS ORDERED: GARLIC OIL1000 MG PO (17:28)
[2019-12-24] MEDS ORDERED: ECHINACEA & GO1 EACH PO (17:28)
[2019-12-24] MEDS ORDERED: VITAMIN D3125 MC2 PO (17:29)
[2019-12-24] MEDS ORDERED: ACIDOPHILUS (17:30)
[2019-12-24] MEDS ORDERED: NORCO 5-325 TA1 EAC1 PO (18:27)
[2019-12-24] MEDS ORDERED: KEFLEX500 M1 PO (18:27)
[2019-12-24 18:38] VITALS: BP 133/90
== END 2019-12-24 18:39 | disposition home or self-care (01) ==
LOC: M.ERS 17:10
DX: S46.812A Strain of other muscles, fascia and tendons at shoulder and upper arm level, left arm, initial encounter (principal); S50.312A Abrasion of left elbow, initial encounter; I10 Essential (primary) hypertension; J44.9 Chronic obstructive pulmonary disease, unspecified; W18.39XA Other fall on same level, initial encounter; Y93.89 Activity, other specified; Y92.89 Other specified places as the place of occurrence of the external cause; Y99.8 Other external cause status

== ENCOUNTER 2020-09-30 18:59 | Inpatient (IN) | payer MEDICARE, OTHER ==
[~2020-09-30] VITALS: Ht 172.7 cm; Wt 81.7 kg
[~2020-09-30 18:59] MED LIST changes: +ACIDOPHILUS; +ASA81BEC PO; +ECHINACEA & GO1 EACH PO; +FISH OIL 1,001000 M3 PO; +FUROSEMIDE 20 M20 MG PO; +GARLIC OIL1000 MG PO; +KEFLEX500 M1 PO; +NORCO 5-325 TA1 EAC1 PO; +VITAMIN D3125 MC2 PO
[2020-09-30 19:01] VITALS: BP 159/105
[2020-09-30] MEDS ORDERED: EFFER-K 10 MEQ10 ME1 PO (19:07)
[2020-09-30] MEDS ORDERED: PROAIR HFA8.5 GM INH (19:08)
[2020-09-30] MEDS ORDERED: MUCINEX600 MG PO (19:08)
[2020-09-30] MEDS ORDERED: GLUCOSAMINE HC500 M1 PO (19:09)
[2020-09-30] MEDS ORDERED: GINKGO BILOBA60 MG PO (19:09)
[2020-09-30] MEDS ORDERED: CALCIUM MAGNES1 EACH PO (19:09)
[2020-09-30 19:27] LABS: ABSOLUTE BASOPHILS 0.1 thou/uL (0.0-0.2); ABSOLUTE EOSINOPHILS 0.2 thou/uL (0.0-0.7); ABSOLUTE LYMPHOCYTES 2.2 thou/uL (0.8-5.3); ABSOLUTE MONOCYTES 0.7 thou/uL (0.0-1.2); ABSOLUTE NEUTROPHILS 4.8 thou/uL (1.6-8.1); EOSINOPHILS 2.7 %; HEMATOCRIT 49.1 % (42.0-52.0); HEMOGLOBIN 16.5 gm/dL (14.0-18.0); LYMPHOCYTES 27.8 %; MCH 30.8 pg (26.0-34.0); MCHC 33.6 g/dL (28.0-37.0); MCV 91.7 fL (80.0-100.0); MONOCYTES 9.3 %; MPV 9.7 fl. (7.2-11.1); NUCLEATED RBCS 0 /100WBC; PLATELET COUNT* 167 thou/uL (150-400); POLYS 59.2 %; RBC 5.35 mil/uL (4.50-6.00); RDW-CV 14.5 % (10.5-14.5)
[2020-09-30 19:33] LABS: CALCIUM 8.7 mg/dL (8.5-10.1); CREATININE 1.1 mg/dL (0.6-1.3); POTASSIUM 3.9 mmol/L (3.5-5.1)
[2020-09-30 19:34] LABS: APTT 26.4 Seconds (25.0-31.3); PROTIME 10.7 Seconds (9.20-11.50)
[2020-09-30 19:44] LABS: TOTAL BILIRUBIN 0.4 mg/dL (<0.1-1.0); TOTAL PROTEIN 7.4 g/dL (6.4-8.2)
[2020-09-30 21:40] VITALS: BP 123/81
[2020-09-30] MEDS ORDERED: ATENOLOL 25 MG25 M1 PO (22:38)
[2020-10-01 04:31] VITALS: BP 169/106
[2020-10-01 07:50] VITALS: BP 149/106
--- NOTE | 2020-10-01 13:22 | 2DMMODE ---
[place] [address] 2 D/M-MODE ECHOCARDIOGRAM Name: CUBA LONG Room: [address] IN [facility]#: [id number] Admission: 10/01/20 Attend Phys: Cuba Barboza, Discharge: Date of : 38 Date of Service: 10/01/20 1322 Report #: [id number] THIS REPORT FOR: cc: Renea Henderson MD, Jayne MD Holkins,Marco Bermudez MD [facility] ~ APPROVED REPORT Study performed: 10/01/2020 09:55:44 EXAM: Comprehensive 2D, Doppler, and color-flow Echocardiogram Patient Location: In-Patient Room #: 232 Status: routine BSA: 1.97 HR: 98 bpm BP: 149/106 mmHg Rhythm: NSR Other Information Study Quality: Good Indications Chest Pain 2D Dimensions IVSd: 13.43 (7-11mm) LVOT Diam: 19.76 (18-24mm) LVDd: 41.27 mm PWd: 9.91 (7-11mm) Ascending Ao: 32.95 (22-36mm) LVDs: 22.21 (25-40mm) Aortic Root: 36.35 mm Volumes Left Atrial Volume (Systole) LA ESV Index: 19.60 mL/m2 Aortic Valve AoV Peak Aleksandar.: 0.91 m/s AO Peak Gr.: 3.30 mmHg LVOT Max P.94 mmHg AO Mean Gr.: 1.91 mmHg LVOT Mean P.91 mmHg LVOT Max V: 0.70 m/s AO V2 VTI: 12.18 cm LVOT Mean V: 0.44 m/s MARY JO (VTI): 2.98 cm2 LVOT V1 VTI: 11.84 [place] [address] 2 D/M-MODE ECHOCARDIOGRAM Name: CUBA LONG Room: [address]#: [id number] Admission: 10/01/20 Attend Phys: Cuba Barboza, Discharge: Date of : 38 Date of Service: 10/01/20 1322 Report #: [id number] TDI Medial E' Aleksandar.: 0.09 m/s Pulmonary Valve PV Peak Laeksandar.: 0.95 m/s PV Peak Gr.: 3.59 mmHg Tricuspid Valve RAP Estimate: 5.00 mmHg TR Peak Gr.: 21.91 mmHg RVSP: 26.00 mmHg PA Pressure: 26.00 mmHg Left Ventricle The left ventricle is normal size. There is normal LV segmental wall motion. There is normal left ventricular wall thickness. Left ventricular systolic function is normal. The left ventricular ejection fraction is within the normal range. LVEF is 65%. This study is not technically sufficient to allow evaluation of the LV diastolic function. Right Ventricle The right ventricle is normal size. The right ventricular systolic function is normal. Atria The left atrium size is normal. The right atrium size is normal. Aortic Valve Mild aortic valve sclerosis. No aortic regurgitation is present. There is no aortic valvular stenosis. Mitral Valve Mild mitral annular calcification. The mitral valve is mildly thickened. Mild mitral regurgitation. No evidence of mitral valve stenosis. Tricuspid Valve The tricuspid valve is normal in structure. Trace tricuspid regurgitation. No pulmonary hypertension. Pulmonic Valve The pulmonary valve is normal in structure. Mild pulmonic regurgitation. Great Vessels The aortic root is normal in size. [place] [address] 2 D/M-MODE ECHOCARDIOGRAM Name: CUBA LONG Room: [address] IN [facility].#: [id number] Admission: 10/01/20 Attend Phys: Cuba Barboza, Discharge: Date of : 38 Date of Service: 10/01/20 1322 Report #: [id number] visualized. Pericardium There is no pericardial effusion. <Conclusion> The left ventricle is normal size. There is normal left ventricular wall thickness. Left ventricular systolic function is normal. The left ventricular ejection fraction is within the normal range. LVEF is 65%. The right ventricle is normal size. The left atrium size is normal. Mild aortic valve sclerosis. No aortic regurgitation is present. There is no aortic valvular stenosis. Mild mitral annular calcification. The mitral valve is mildly thickened. Mild mitral regurgitation. No evidence of mitral valve stenosis. The tricuspid valve is normal in structure. There is no pericardial effusion. There is normal LV segmental wall motion. <ELECTRONICALLY SIGNED> By: Marco Perez MD, FACC 10/01/20 1322 132 132 Marco Perez MD, FACC /INF
--- NOTE | 2020-10-01 13:42 | EKG ---
[place] [address] ELECTROCARDIOGRAM REPORT Name: CUBA LONG Room: [address] IN [facility]#: [id number] Admission: 10/01/20 Attend Phys: Cuba Barboza, Discharge: Date of : 38 Date of Service: 09/30/201901 Report #: [id number] THIS REPORT FOR: //name// [facility] ED Test Date: 2020-09-30 Test Time: 19:02:54 Pat Name: CUBA LONG Department: Room: [facility] Gender: M Health Manager: MERRY : 1940 Requested By: Karol Tracy Order Number: [id number] MD: Marco Perez Measurements Intervals [place] Rate: 138 P: 212 MD: 110 QRS: 212 QRSD: 110 T: -6 QT: 301 QTc: 456 Interpretive Statements Supraventricular tachycardia of uncertain mechanism IVCD of the right type Nonspecific T abnormalities, lateral leads Baseline wander in lead(s) I,II,aVR,V3,V5 Compared to ECG 04/24/2019 16:56:19 T-wave abnormality now present Sinus rhythm no longer present Electronically Signed On 10-01-2020 13:42:49 TREE LOADER [employer] by Marco Perez [email or web address] <ELECTRONICALLY SIGNED> By: Marco Perez MD, [facility] 10/01/20 1342 01 01 Marco Perez MD, [facility] /EPI
--- NOTE | 2020-10-01 13:45 | EKG ---
[place] [address] ELECTROCARDIOGRAM REPORT Name: CUBA LONG Room: [address] IN [facility]#: [id number] Admission: 10/01/20 Attend Phys: Cuba Barboza, Discharge: Date of : 38 Date of Service: 10/01/20 1058 Report #: [id number] THIS REPORT FOR: //name// [facility] Test Date: 2020-10-01 Test Time: 10:58:38 Pat Name: CUBA LONG Department: Room: [address] Gender: M Compliance Auditor: : 1940 Requested By: Elsy Tom Order Number: [id number] Frantz MD: Marco Perez Measurements Intervals [place] Rate: 59 P: 39 ND: 203 QRS: 224 QRSD: 115 T: -32 QT: 414 QTc: 411 Interpretive Statements Sinus rhythm IVCD of the right type Nonspecific T abnormalities, inferior leads Compared to ECG 09/30/2020 19:02:54 Intraventricular conduction delay persists T-wave abnormality still present Rhythm is now sinus at a normal rate Electronically Signed On 10-01-2020 13:45:01 CABLE SPOOLER by Marco Perez [email or web address] <ELECTRONICALLY SIGNED> By: Marco Perez MD, [facility] 10/01/20 1345 1058 1058 Marco Perez MD, [facility] /EPI
[2020-10-01 14:09] VITALS: BP 120/73
[2020-10-01 15:32] VITALS: BP 131/92
[2020-10-01 20:00] VITALS: BP 138/99
[2020-10-01 23:45] VITALS: BP 138/101
[2020-10-02 03:54] VITALS: BP 141/77
[2020-10-02 04:24] LABS: HEMATOCRIT 46.8 % (42.0-52.0); HEMOGLOBIN 15.4 gm/dL (14.0-18.0); MCH 30.3 pg (26.0-34.0); MCV 91.9 fL (80.0-100.0); MPV 9.9 fl. (7.2-11.1); RBC 5.09 mil/uL (4.50-6.00); RDW-CV 14.1 % (10.5-14.5); WBC 8.2 thou/uL (4.0-11.0)
[2020-10-02 04:30] LABS: CALCIUM 9.2 mg/dL (8.5-10.1); CREATININE 0.9 mg/dL (0.6-1.3); POTASSIUM 3.8 mmol/L (3.5-5.1)
[2020-10-02] MEDS ORDERED: ATENOLOL 50MG T50 M1 PO (08:49)
[2020-10-02] MEDS ORDERED: IBUPROFEN 600600 M1 PO (08:49)
--- NOTE | 2020-10-02 09:38 | EKG ---
[place] [address] ELECTROCARDIOGRAM REPORT Name: CUBA LONG Room: [address] IN [facility]#: [id number] Admission: 10/01/20 Attend Phys: Cuba Barboza, Discharge: Date of : 38 Date of Service: 10/02/20911 Report #: [id number] THIS REPORT FOR: //name// [facility] Test Date: 2020-10-02 Test Time: 09:12:03 Pat Name: CUBA LONG Department: Room: [address] Gender: M Compliance Engineer: : 1940 Requested By: Elsy Tom Order Number: [id number] Reading MD: Miguel A Vang Measurements Intervals [place] Rate: 66 P: 36 MT: 200 QRS: 251 QRSD: 117 T: -1 QT: 417 QTc: 437 Interpretive Statements Sinus rhythm Ventricular premature complex LAD, consider left anterior fascicular block Compared to ECG 10/01/2020 10:58:38 Ventricular premature complex(es) now present Intraventricular conduction delay no longer present T-wave abnormality no longer present Electronically Signed On 10-02-2020 9:38:20 ASSISTANT FITNESS MANAGER by Miguel A Vang [email or web address] <ELECTRONICALLY SIGNED> By: Miguel A Vang MD, [facility] 10/02/20937 1 1 Miguel A Vang MD, [facility] /EPI
[2020-10-02 11:30] VITALS: BP 135/83
== END 2020-10-02 12:35 | disposition home or self-care (01) | DRG 314 ==
LOC: M.ERS 18:59 → M.TBA-ER 20:38 → M.2W 21:55
PROVIDERS: Family Medicine; Personal Emergency Response Attendant; ADMIT Internal Medicine; ATTEND Internal Medicine
DX: I30.9 Acute pericarditis, unspecified (principal); J96.01 Acute respiratory failure with hypoxia; I16.0 Hypertensive urgency; R00.0 Tachycardia, unspecified; J44.9 Chronic obstructive pulmonary disease, unspecified; M54.9 Dorsalgia, unspecified; I20.9 Angina pectoris, unspecified; I10 Essential (primary) hypertension; Z20.822 Contact with and (suspected) exposure to COVID-19; Z85.46 Personal history of malignant neoplasm of prostate; Z98.49 Cataract extraction status, unspecified eye; Z79.899 Other long term (current) drug therapy; Z79.82 Long term (current) use of aspirin; Z28.21 Immunization not carried out because of patient refusal

== ENCOUNTER 2021-04-03 14:18 | Emergency (ER) | payer MEDICARE, OTHER ==
[~2021-04-03] VITALS: Ht 170.2 cm; Wt 81.7 kg
[~2021-04-03 14:18] MED LIST changes: +ATENOLOL 25 MG25 M1 PO; +ATENOLOL 50MG T50 M1 PO; +CALCIUM MAGNES1 EACH PO; +EFFER-K 10 MEQ10 ME1 PO; +GINKGO BILOBA60 MG PO; +GLUCOSAMINE HC500 M1 PO; +IBUPROFEN 600600 M1 PO; +MUCINEX600 MG PO; +PROAIR HFA8.5 GM INH
[2021-04-03] MEDS ORDERED: MITIGARE0.6 MG PO (14:28)
[2021-04-03] MEDS ORDERED: INDOMETHACIN 5050 M1 PO (14:28)
[2021-04-03 16:33] VITALS: BP 171/113
== END 2021-04-03 16:34 | disposition home or self-care (01) ==
LOC: M.ERS 14:18
DX: S52.592A Other fractures of lower end of left radius, initial encounter for closed fracture (principal); S52.612A Displaced fracture of left ulna styloid process, initial encounter for closed fracture; S00.83XA Contusion of other part of head, initial encounter; R07.81 Pleurodynia; I10 Essential (primary) hypertension; J44.9 Chronic obstructive pulmonary disease, unspecified; Z79.82 Long term (current) use of aspirin; Z79.899 Other long term (current) drug therapy; W18.30XA Fall on same level, unspecified, initial encounter; Y93.89 Activity, other specified; Y92.69 Other specified industrial and construction area as the place of occurrence of the external cause; Y99.9 Unspecified external cause status

== ENCOUNTER → 2021-04-08 | Outpatient (CLI) | payer MEDICARE, OTHER ==
[~2021-04-08] MED LIST changes: +INDOMETHACIN 5050 M1 PO; +MITIGARE0.6 MG PO
[2021-04-08 16:21] LABS: CALCIUM 9.2 mg/dL (8.5-10.1); CREATININE 1.3 mg/dL (0.6-1.3); POTASSIUM 4.4 mmol/L (3.5-5.1)
== END ==
LOC: M.LAB 15:45
PROVIDERS: ATTEND Registered Nurse
DX: I30.8 Other forms of acute pericarditis (principal); I10 Essential (primary) hypertension